=== PATIENT | male | born 1975 | race Caucasian/White ===

== ENCOUNTER 2024-12-11 20:21 | Emergency (ER) | payer BC, SELFPAY ==
--- NOTE | 2024-12-11 20:15 | RT.EKG_ITS ---
APPROVED REPORT Exam: Resting ECG Reason for Exam: chest pain Patient Location: E HR:66 bpm ECG Measurements Heart Rate 66 AXIS NH 115 P 46 QRSd 69 QRS 63 QT 398 T 46 QTc 419 Conclusion Sinus rhythm...normal P axis, V-rate 60- 99
[2024-12-11 20:25] VITALS: BP 143/81; PULSE 67; RESP 16; TEMP 36.7; O2SAT 98
--- NOTE | 2024-12-11 20:31 | ED.GENADUL_ITS ---
Discharge Plan Disposition Patient Disposition: Home Discharge Details Clinical Impression: Chest pain Primary Care Provider: [facility] Provider: Maureen Patterson Discharge Instructions Instructions: Chest Pain (DC) Additional Instructions: Please call your primary care provider and training program assistant first thing Friday morning for further outpatient evaluation into the cause of your chest pain episodes today. Further outpatient diagnostics may be indicated. Your cardiac workup today was reassuring. Your chest x-ray did show a pulmonary nodule in your left lower lobe, which I understand you are monitoring with your primary care provider. Please continue regular monitoring as suggested by PCP. I recommend that you practice stress reduction techniques. Eat regular meals throughout the day and get plenty of rest. Return to emergency care if you develop new episodes of chest pain, difficulty breathing/shortness of breath, dizziness/episodes of passing out, unexplained sudden weakness, or if you are very worried you need to be rechecked again immediately. HPI General Date/Time Provider Initiated Documentation: 12/11/24 20:25 . HPI Narrative: Galileo is a 49-year-old male who presents to the emergency department for evaluation of chest pain. Patient experienced mild central chest discomfort around noon, attempted to alleviate with a 1.5-hour nap. Denies associated symptoms such as sweating, nausea, dizziness, or dyspnea. Sternal chest pain has remained constant since onset, is described as a dull aching discomfort. 1.5 hours ago, sudden onset of intense sharp pain in the left lateral chest. He denies other associated symptoms. He did take 324 of chewable aspirin and 1 nitroglycerin, says he currently is feeling mild headache and dizziness after taking the nitro. Pain to the left lateral chest has subsided, sternal chest discomfort persist. Denies recent illness, fever, chills, congestion, sore throat, cough, abdominal pain, changes in bowel/bladder habits, blood in stools, black tarry stools, lower leg pain. Admits to significant stressors in his life recently. On [place] [employer] flight. Does have family history of early cardiac disease at age 53 (father) No history of blood clots, hormone use, personal history of cancer, GI bleeds, intracranial hemorrhage, strokes, AVMs, neurological problems, headaches, or recent heartburn. Reports blood sugars have recently been well-controlled, has CGM in place History of similar sternal chest pain and palpitations, no VA, interventions, or stenting. Underwent cardiology workup for palpitations and fluttering (unsure of diagnosis), was prescribed nitroglycerin at that time. Recently had a nuclear stress test earlier this year, no acute abnormalities noted. 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 Past medical history significant for T1DM (on insulin regimen), HTN (on antihypertensives), HLD (on statin). He also reports history of lung nodules and pulmonary edema 25 years ago, attributed to marathon running. Denies history of smoking or drug use. He has not come to [facility] previously, lives in [facility]. Exam Narrative Exam Narrative: General Appearance: Normal. Alert and oriented, no acute distress Vital signs: Within normal limits. Respiratory: Easy work of breathing, lung sounds clear to auscultation bilaterally. No pain on palpation of anterior chest wall. Cardiovascular: Normal sinus rhythm, radial pulses intact bilaterally. No obvious JVD or pedal edema. Gastrointestinal: Abdomen is soft, nondistended, nontender to palpation with normoactive bowel sounds. No pulsatile abdominal masses Back, Musculoskeletal: No pain in lower extremities, no erythema, edema, or tenderness to palpation. Skin: Warm and dry, no rash. Psychiatric: Normal. Medical Decision Making 49-year-old male presenting with chest pain since 1200 hours today. Pain initially mild and central, later intensified and moved to the left side. Took nitroglycerin and aspirin, which alleviated pain but caused dizziness. No other significant symptoms reported. Differential Diagnosis includes but is not limited to: ACS, cardiac arrhythmia, pulmonary embolism, spontaneous pneumothorax, pneumonia, pancreatitis, gastritis/GERD/esophagitis, muscle spasm, esophageal spasm. Heart score 3 based on patient's risk factors (T1DM, HTN, HLD, and family history of early cardiac disease <50 years age), indicating low risk of MACE ED Course: - EKG showed normal sinus rhythm, no ischemic changes. - Nitroglycerin and aspirin administered prior to arrival, alleviated L chest wall pain. nitro x 2 ordered for administration in ED. - labs ordered -CXR ordered While in the ED Galileo received 2 additional nitroglycerin and famotidine with no significant change in symptoms. Sternal chest discomfort continued, rated 1 out of 10. This fully resolved without further intervention prior to discharge. Pt was able to drink gingerale and ambulate without dizziness or recurrrence of CP. I independently interpreted the following tests: EKG reassuring, normal sinus rhythm rate 66, normal intervals. No changes consistent with acute ischemia. CBC, CMP, mag, lipase, BNP, d-dimer, VBG all reassuring. Troponins flat at 7 and 7. CXR reassuring, nodular opacity noted in the left lower lobe. I discussed this incidental finding with patient, who reports that he is aware of this pulmonary nodule and is being monitored by his PCP. Clinical Impression: Overall cardiac workup today very reassuring. Unclear etiology of chest pain, recommend further follow-up with outpatient training program assistant for evaluation/management. Discharge instructions with patient, including importance of prompt follow-up with PCP/training program assistant for further evaluation/workup, stress reduction techniques, and red flags indicate need for return to emergency care. He voices agreement with plan of care. Disposition: - Follow-Up: Further evaluation on outpatient basis Patient consented to the use of [facility] Imaging Data Radiologic Study: Radiologist's impression: PROCEDURE INFORMATION: Exam: XR Chest Exam date and time: 12/11/2024 9:22 PM Age: 49 years old Clinical indication: Other: Chest pain TECHNIQUE: Imaging protocol: Radiologic exam of the chest. Views: 2 views. COMPARISON: No relevant prior studies available. FINDINGS: Lungs: Unremarkable. No consolidation. Pleural spaces: Unremarkable. No pleural effusion. No pneumothorax. Heart/Mediastinum: Unremarkable. No cardiomegaly. Bones/joints: Unremarkable. Other findings: A nodular opacity identified overlying the left lower lobe. CT scan of the chest is recommended for further evaluation. IMPRESSION: A nodular opacity identified overlying the left lower lobe for which correlation with CT scan of the chest is recommended. Quality:SDOH Health Related Social Needs: Health related social needs risk of homeless daily act ivities Health related social needs details none identified PFSH All Active Problems (Updated 12/11/24 @ 22:19 by Maureen Nice) Chest pain (Acute) Social History Smoking/Tobacco Use Status: Never Smoking risk assessment performed?: Yes Alcohol Intake: current Alcohol Intake frequency: 0-2 drinks per day Alcohol type: other Drug use: Never Substance use type: does not use
--- NOTE | 2024-12-11 20:45 | DI.RAD_ITS ---
Exam(s) XR CHEST 2V PA LATERAL EXAM: XR CHEST 2V PA LATERAL CLINICAL HISTORY: Chest pain TECHNIQUE: 2D digital imaging was performed of the chest. Two images were obtained. PA and lateral views were obtained. COMPARISON: No exams were available for comparison FINDINGS: MEDIASTINUM: Normal. HEART: Normal. PULMONARY VASCULATURE: Normal. LUNGS: Clear. PLEURAL SPACE: No pleural effusion or pneumothorax. BONE:Within normal limits for the patient's age. OTHER FINDINGS:There is a nodular density lateral to the heart overlying the left lower lobe. This may represent a nipple shadow. It partially overlaps the posterior aspect of the left 9th rib. IMPRESSION: 1. No acute pulmonary findings. 2. Nodular density overlying the left lower lobe which may represent a nipple shadow. A repeat frontal view of the chest with nipple markers is recommended. If indicated following the repeat chest x-ray, a CT scan may be performed for further evaluation. 3. The preliminary [facility] report was reviewed. DATA REPOSITORY: RADIATION DOSE DELIVERED:
[2024-12-11] MEDS: nitroGLYcerin 0.4 MG TAB SL (20:54)
[2024-12-11] MEDS: Famotidine 20 MG/2 ML VIAL 40 MG IVP (20:58)
[2024-12-11 20:59] LABS: Abs Immature Grans 0.01 10^3/uL (0.0-0.06); HCT 42.8 % (40.0-50.0); HGB 15.0 g/dL (13.5-17.5); Immature Grans % 0.1 %; MCH 31.2 pg (27.0-33.0); MCHC 35.0 % (32.0-36.0); MCV 89 fL (80-95); MPV 9.0 fL (8.0-11.0); Platelet Count 331 10^3/uL (130-400); RBC 4.81 10^6/uL (4.36-5.78); RDW 12.0 % (11.8-14.1); RDW-SD 39.3 fL; WBC 7.30 10^3/uL (4.4-10.8)
[2024-12-11 21:22] LABS: ALT 84 U/L (16-63); AST 60 U/L (15-37); Albumin 3.8 g/dL (3.4-5.0); Alkaline Phosphatase 112 U/L (46-116); Anion Gap 8.7 mmol/L (3-11); BUN 16 mg/dL (7-18); Bilirubin, Total 0.4 mg/dL (0.2-1.0); CO2 27.3 mmol/L (21.0-32.0); Calcium 9.1 mg/dL (8.5-10.1); Chloride 102 mmol/L (98-107); Estimated GFR 82.81 (mL/min/1.73m2); Glucose 89 mg/dL (74-106); Lipase 63 U/L (<78); Magnesium 1.9 mg/dL (1.8-2.4); NT-proBNP 12 pg/mL (<300); Potassium 3.9 mmol/L (3.5-5.1); Sodium 138 mmol/L (136-145); Total Protein 7.8 g/dL (6.4-8.2); Troponin I 7 ng/L (<or=76)
[2024-12-11 21:26] LABS: D-Dimer 248 ng/mlFEU (<500)
[2024-12-11 21:42] LABS: BE (Venous) -1 mmol/L (-2-3); HCO3 (Venous) 24 mmol/L (23-28); O2 Sat (Venous) 94 %; TCO2 (Venous) 22 mmol/L (24-29); pCO2 (Venous) 41 mmHg (41-51); pO2 (Venous) 68 mmHg
[2024-12-11 22:02] LABS: Troponin I 7 ng/L (<or=76)
--- NOTE | 2024-12-11 22:08 | DI.[facility]_ITS ---
PROCEDURE INFORMATION: Exam: XR Chest Exam date and time: 12/11/2024 9:22 PM Age: 49 years old Clinical indication: Other: Chest pain TECHNIQUE: Imaging protocol: Radiologic exam of the chest. Views: 2 views. COMPARISON: No relevant prior studies available. FINDINGS: Lungs: Unremarkable. No consolidation. Pleural spaces: Unremarkable. No pleural effusion. No pneumothorax. Heart/Mediastinum: Unremarkable. No cardiomegaly. Bones/joints: Unremarkable. Other findings: A nodular opacity identified overlying the left lower lobe. CT scan of the chest is recommended for further evaluation. IMPRESSION: A nodular opacity identified overlying the left lower lobe for which correlation with CT scan of the chest is recommended. Dictated and Authenticated by: Joe Cordoba MD. Orderin Meme Reddy MD
[2024-12-11 22:24] VITALS: BP 121/61; PULSE 72; RESP 16; TEMP 37.2; O2SAT 97
== END 2024-12-11 22:41 | disposition home or self-care (01) ==
LOC: ER 22:25
PROVIDERS: Emergency Provider Nurse Practitioner Family
DX: R07.9 Chest pain, unspecified (principal); Z59.811 Housing instability, housed, with risk of homelessness
CPT/HCPCS: 99284 ×2; 96374; 36415; 80053; 82805; 83690; 93005; 71046; 83735; 83880; 84484; 85025; 85379; 93010